=== PATIENT | female | born 1935 | race Caucasian/White ===

== ENCOUNTER → 2016-08-22 | Outpatient (CLI) | payer MEDICARE | END | disposition home or self-care (01) | LOC: CFH 16:10 | PROVIDERS: ATTEND Family Medicine | DX: J91.8 Pleural effusion in other conditions classified elsewhere (principal); I10 Essential (primary) hypertension | CPT/HCPCS: 71020 ==

== ENCOUNTER → 2016-09-19 | Outpatient (CLI) | payer MEDICARE | END | disposition home or self-care (01) | LOC: CFH 13:19 | PROVIDERS: ATTEND Family Medicine | DX: M47.894 Other spondylosis, thoracic region (principal); I10 Essential (primary) hypertension | CPT/HCPCS: 71020 ==

== ENCOUNTER 2017-02-02 14:58 | Inpatient (IN) | payer MEDICARE ==
[~2017-02-02] VITALS: Ht 157.5 cm; Wt 82.6 kg
[2017-02-02] MEDS ORDERED: SODIUM CHLORIDE FLUSH 10ML SYR IVF ONE (15:30)
[2017-02-02] MEDS ORDERED: SODIUM CHLORIDE 0.9% 1,000ML IVBOLUS ONE (15:30)
[2017-02-02 15:57] LABS: HEMATOCRIT 50.7 % (34.6-47.8); HEMOGLOBIN 17.1 g/dL (11.7-16.4); WHITE BLOOD COUNT 11.2 x10^3/uL (3.4-10)
[2017-02-02 16:09] LABS: BLOOD UREA NITROGEN 25 mg/dL (7-18)
[2017-02-02 16:12] LABS: IS PT STATUS REG ER OR PRE ER? YES
[2017-02-02] MEDS ORDERED: hydrALAzine 20 MG/ML, 1ML ONE (16:46)
[2017-02-02] MEDS ORDERED: hydrALAzine 20 MG/ML, 1ML IV ONE ×2 (17:00→18:00)
[2017-02-02] MEDS ORDERED: POTASSIUM CHLORIDE 20 MEQ TAB.ER.PRT PO ONE (17:00)
[2017-02-02] MEDS ORDERED: POTASSIUM CHLORIDE 20 MEQ TAB.ER.PRT ONE (17:11)
[2017-02-02] MEDS ORDERED: FUROSEMIDE 40 MG/4 ML ONE (17:15)
[2017-02-02] MEDS ORDERED: GUAIFENESIN/DM 200-20MG, 10ML UDC PO PRN (17:30)
[2017-02-02] MEDS ORDERED: ONDANSETRON 2MG/ML, 2ML IVPush PRN (17:30)
[2017-02-02] MEDS ORDERED: morphine SULFATE 10 MG/ML, 1ML IVPush PRN (17:30)
[2017-02-02] MEDS ORDERED: FUROSEMIDE 40 MG/4 ML IV ONE (17:30)
[2017-02-02] MEDS ORDERED: ONDANSETRON ODT 4 MG PO PRN (17:30)
[2017-02-02] MEDS ORDERED: HYDROcodone/APAP 5/325 TABLET PO PRN (17:30)
[2017-02-02 17:52] VITALS: BP 252/70
[2017-02-02] MEDS: LISINOPRIL 10 MG TABLET PO SCH ×2 (17:59→21:00)
[2017-02-02] MEDS: AMLODIPINE 5 MG TABLET PO SCH ×2 (17:59→21:00)
[2017-02-02] MEDS ORDERED: LORazepam 0.5MG TABLET PO PRN (18:00)
[2017-02-02] MEDS ORDERED: ASPIRIN 325 MG TABLET PO SCH (18:00)
[2017-02-02 18:15] VITALS: BP_SYST 193; BP_SYST 201; BP_DIAS 65; BP_DIAS 69
[2017-02-02 19:00] VITALS: BP_SYST 178; BP_SYST 200; BP_DIAS 69; BP_DIAS 71
[2017-02-02 22:41] LABS: IS PT STATUS REG ER OR PRE ER? NO
[2017-02-02 23:09] VITALS: BP_SYST 189; BP_SYST 191; BP_DIAS 65; BP_DIAS 67
[2017-02-02] MEDS: ENALAPRILAT 1.25 MG/ML, 2ML IV PRN (23:59)
[2017-02-03] VITALS (7 sets, daily range): BP systolic 136–191; BP diastolic 52–74
[2017-02-03] MEDS ORDERED: hydrALAzine 20 MG/ML, 1ML IV ONE
[2017-02-03] MEDS ORDERED: ACETAMINOPHEN 325 MG TABLET PO PRN
[2017-02-03 05:26] LABS: HEMATOCRIT 46.9 % (34.6-47.8); HEMOGLOBIN 16.1 g/dL (11.7-16.4); WHITE BLOOD COUNT 11.5 x10^3/uL (3.4-10)
[2017-02-03 05:35] LABS: IS PT STATUS REG ER OR PRE ER? NO
[2017-02-03 05:39] LABS: ASPARTATE AMINO TRANSFERASE 22 U/L (15-37); BLOOD UREA NITROGEN 27 mg/dL (7-18)
[2017-02-03] MEDS: LISINOPRIL 10 MG TABLET PO SCH ×2 (06:37→19:55)
[2017-02-03] MEDS: AMLODIPINE 5 MG TABLET PO SCH ×2 (06:37→19:55)
[2017-02-03] MEDS: ASPIRIN 81 MG TABLET EC PO SCH (08:12)
[2017-02-03] MEDS: SODIUM CHLORIDE 0.9% 1,000 ML IV SCH ×2 (08:12→10:11)
[2017-02-03] MEDS: SENNA/DOCUSATE TABLET PO SCH (08:12)
[2017-02-03] MEDS ORDERED: FUROSEMIDE 40 MG/4 ML IV SCH (09:00)
[2017-02-03] MEDS: ENALAPRILAT 1.25 MG/ML, 2ML IV PRN (11:44)
[2017-02-03] MEDS: hydrALAzine 20 MG/ML, 1ML IV PRN (16:24)
[2017-02-04 03:11] VITALS: BP 168/57
[2017-02-04 05:18] LABS: HEMATOCRIT 47.1 % (34.6-47.8); HEMOGLOBIN 15.9 g/dL (11.7-16.4); WHITE BLOOD COUNT 9.8 x10^3/uL (3.4-10)
[2017-02-04 05:27] LABS: BLOOD UREA NITROGEN 38 mg/dL (7-18)
[2017-02-04 05:35] VITALS: BP 161/60
[2017-02-04 07:00] VITALS: BP 142/54
[2017-02-04] MEDS: SENNA/DOCUSATE TABLET PO SCH (07:49)
[2017-02-04] MEDS: LISINOPRIL 20 MG TABLET PO SCH ×2 (07:49→21:07)
[2017-02-04] MEDS: HYDROCHLOROTHIAZIDE 25 MG TABLET PO SCH (07:49)
[2017-02-04] MEDS: AMLODIPINE 5 MG TABLET PO SCH ×2 (07:50→21:07)
[2017-02-04] MEDS: ASPIRIN 81 MG TABLET EC PO SCH (07:50)
[2017-02-04 12:18] VITALS: BP 192/70
[2017-02-04] MEDS: hydrALAzine 20 MG/ML, 1ML IV PRN (12:20)
[2017-02-04 13:15] VITALS: BP 156/71
[2017-02-04] MEDS ORDERED: FENTANYL PF 100 MCG/2ML ONE (13:34)
[2017-02-04] MEDS ORDERED: CEFAZOLIN PMX 1GM/50ML 50 ML ONE (13:34)
[2017-02-04] MEDS ORDERED: CEFAZOLIN 1,000 MG ONE (13:34)
[2017-02-04] MEDS ORDERED: MIDAZOLAM 1 MG/ML, 5ML ONE (13:34)
[2017-02-04] MEDS ORDERED: LIDOCAINE 2%, 20ML ONE (13:34)
[2017-02-04 19:37] VITALS: BP 133/65
[2017-02-04] MEDS: SODIUM CHLORIDE FLUSH 10ML SYR IVF SCH (21:07)
[2017-02-04] MEDS: CEFAZOLIN PMX 1GM/50ML 50 ML IVPB SCH (23:07)
[2017-02-05 03:13] VITALS: BP 119/60
[2017-02-05] MEDS: ASPIRIN 81 MG TABLET EC PO SCH (05:30)
[2017-02-05 06:02] LABS: HEMATOCRIT 45.7 % (34.6-47.8); HEMOGLOBIN 15.4 g/dL (11.7-16.4); WHITE BLOOD COUNT 10.6 x10^3/uL (3.4-10)
[2017-02-05 06:07] LABS: BLOOD UREA NITROGEN 39 mg/dL (7-18)
[2017-02-05 06:30] VITALS: BP 156/69
[2017-02-05] MEDS: SENNA/DOCUSATE TABLET PO SCH (09:00)
[2017-02-05] MEDS ORDERED: METOPROLOL TARTRATE 25 MG TABLET PO SCH (09:00)
[2017-02-05] MEDS: CEFAZOLIN PMX 1GM/50ML 50 ML IVPB SCH (09:07)
[2017-02-05] MEDS: SODIUM CHLORIDE FLUSH 10ML SYR IVF SCH (09:07)
[2017-02-05] MEDS: AMLODIPINE 5 MG TABLET PO SCH (09:08)
[2017-02-05] MEDS: HYDROCHLOROTHIAZIDE 25 MG TABLET PO SCH (09:09)
[2017-02-05] MEDS: LISINOPRIL 20 MG TABLET PO SCH (09:09)
[2017-02-05] MEDS ORDERED: ASPI-621 PO (09:15)
[2017-02-05] MEDS ORDERED: HYDR25TA6 PO (09:15)
[2017-02-05] MEDS ORDERED: LISI-170 PO (09:15)
[2017-02-05] MEDS ORDERED: METO25TA35 PO (09:15)
[2017-02-05] MEDS ORDERED: AMLO5TAB2 PO (09:15)
== END 2017-02-05 13:00 | disposition home or self-care (01) | DRG 242 ==
LOC: ED 17:01 → EDIP 17:30 → 5SO 17:52 → DCLOUNGE 02-05 12:50
PROVIDERS: ADMIT Hospitalist; ATTEND Hospitalist
PROC: 0JH606Z Insertion of Pacemaker, Dual Chamber into Chest Subcutaneous Tissue and Fascia, Open Approach (ICD-10-PCS; principal; 2017-02-04)
PROC: 02H63JZ Insertion of Pacemaker Lead into Right Atrium, Percutaneous Approach (ICD-10-PCS; 2017-02-04)
PROC: 02HK3JZ Insertion of Pacemaker Lead into Right Ventricle, Percutaneous Approach (ICD-10-PCS; 2017-02-04)
DX: I44.2 Atrioventricular block, complete (principal); N17.0 Acute kidney failure with tubular necrosis; I50.31 Acute diastolic (congestive) heart failure; D75.1 Secondary polycythemia; E44.1 Mild protein-calorie malnutrition; I11.0 Hypertensive heart disease with heart failure; I16.0 Hypertensive urgency; I45.10 Unspecified right bundle-branch block; D72.829 Elevated white blood cell count, unspecified; Z68.33 Body mass index [BMI] 33.0-33.9, adult; E87.6 Hypokalemia; M54.30 Sciatica, unspecified side; Z79.899 Other long term (current) drug therapy; Z85.42 Personal history of malignant neoplasm of other parts of uterus; Z87.891 Personal history of nicotine dependence; Z90.710 Acquired absence of both cervix and uterus
CPT/HCPCS: 33208; 36415; 71010; 80048; 80053; 80061; 81003; 82040; 83036; 83735; 83880; 84436; 84439; 84443; 84481; 84484; 85025; 85379; 93005; 93306; 93970; 96361; 96374; 96375; 99156; 99157; C1779; C1785; C1892; J0690; J1940; J2250; J3010; J3490; J0360; J7030